=== PATIENT | male | born 1970 | race Caucasian/White ===

== ENCOUNTER 2024-10-12 10:34 | Outpatient (REF) | payer OTHER, SELFPAY ==
--- NOTE | ~2024-10-12 | XR_ITS ---
CLINICAL HISTORY: M50.90 - Cervical disc disorder, unspecified, unspecified cervical region 4 views cervical spine Comparison: None Findings: There is 2.5 mm anterior listhesis C4 on C5 which does not change on neutral, flexion or extension views. There are multilevel degenerative changes. The there are multilevel osteophytes, mild disc space narrowing, facet spondylosis and uncinate hypertrophy. No acute fractures or dislocation. Prevertebral soft tissues within normal limits. IMPRESSION: Multilevel spondylosis as above This document has been electronically signed by: Chucho Zhou MD on 10/13/2024 07:26:44
--- OUTSIDE RECORDS SUMMARY | 2024-10-12 13:56 | XMS_ITS | Data Portability ---
Author Organization [facility], [employer] Address [address] [place] [address] Care Team Providers Care Regional Guide Name Role Phone ELLE ORNELAS Primary Care Provider Assessment Encounter Date Assessment Date Assessment LastModified by Organization Details LastModified Time 04/30/2023 04/30/2023 pt is feeling much better has been out of work for 4 days would like to return to work no temp occasional cough appetite improved hydrating neg covid test [email or web address] Not available 05/01/2023 13:45:40 07/06/2023 07/06/2023 35 minutes spent on date of service on chart review, direct time spent with patient, and documentation of clinical encounter. During this encounter, 2 of the 3 elements of MDM addressed: (1)Number and Complexity of problems: 1 undiagnosed new problem with uncertain prognosis (2)Amount/Comple xity of data (need 1 out of 3 categories): (3)Moderate Risk of morbidity from additional diagnostic testing or treatment (one needed): Prescription Drug management. Not available 07/06/2023 10:53:20 02/16/2024 02/16/2024 30 minutes spent on date of service on chart review, direct time spent with patient, and documentation of clinical encounter. [email or web address] Not available 02/16/2024 20:36:35 10/04/2024 10/04/2024 During this encounter, 2 of the 3 elements of MDM addressed: (1)Number and Complexity of problems: 1 or more chronic illness with exacerbation, progression, or side effects of treatment (2)Amount/Comple xity of data (need 1 out of 3 categories): (3)Moderate Risk of morbidity from additional diagnostic testing or treatment (one needed): Prescription Drug management. [email or web address] Not available 10/04/2024 15:49:46 Plan of Treatment Reminders Order Date Submit Date Provider Last Modified By Organization Details Last Modified Time Details Appointments None recorded. Lab CBC w/ auto diff 2023 024 [place] [facility] (Centralized Electronic Ordering - All Locations), Patient Can Go To The Location Of Their Choice, [address] 4 10:50:56 CMP, serum or plasma 2023 024 [place] [facility] (Centralized Electronic Ordering - All Locations), Patient Can Go To The Location Of Their Choice, [address] 4 10:50:56 Referral spine center referral 2024 025 [place] [address] [facility], [address], [place] [address], [place], [address], 5 10:29:47 spine center referral 2023 024 [email or web address] 4 [facility], [address] [place], [address], 4 10:04:12 traffic operator referral 2023 024 [email or web address] 4 Elvia Steele DPM, [address] , [place], [address], 4 09:33:18 Procedures None recorded. Surgeries None recorded. Imaging XR, cervical spine 2023 024 [facility] (Outpt Imaging), [address] [place], [address], 4 14:59:25 XR, foot, 3 or more view 2023 024 [facility] (Outpt Imaging), [address] [place], [address], 4 09:07:24 XR, chest, 2 view 2022 023 [email or web address] [facility] (Outpt Imaging), [address] [place], [address], 3 14:51:40 Medication Orders hydrocodone 5 mg-acetamin ophen 325 mg tablet [email or web address], [address], 5 15:27:37 Bactrim DS 800 mg-160 mg tablet [address], [address], 5 15:07:22 terbinafine HCl 250 mg tablet [address], [address], 4 10:49:08 tramadol 50 mg tablet 2022 [email or web address], [address], 3 10:06:04 Patient TargetsNo targets recorded. Patient Instructions Encounter Date Encounter Id Patient Instructions Last Modified By Organization Details Last Modified Time 04/07/2023 [id number] Please have X-ra y of ribs done. Results will be reviewed by a provider, then be relayed to you. Take Tramadol 50mg every 6 hours as needed for pain/discomfort, along with Tylenol 1,000mg three times a day, and ibuprofen 600-800mg every 6-8 hours as needed for pain/discomfort. Brace affected side with a rolled up towel, or a pillow, when taking deep breaths, coughing, or sneezing. Drink plenty of non-caffeinated fluids. Call this office if you develop a fever of 101F or above, and/or increased productive cough. 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 Referring Physician: Ceci Valencia, Family Medicine, Encounter Date: 07/06/2023 Spine Center Referral for Ne ck pain Referring Physician: Fidelina Preciado, Internal Medicine, Encounter Date: 02/16/2024 Spine Center Referral for Ne ck pain Referring Physician: Elle Ornelas, Internal Medicine, Encounter Date: 10/04/2024 Results Created Date Observation Date Name Description Value Unit Range Abnormal Flag Note LastModifiedBy Organization Detail LastModifiedTime 04/07/2004/07/2023 XR, chest , 2 view Chest 2 Views Fronta l and Lat Reason : pleuro dynia COMPAR SHAILA: 023 FINDIN GS: LINES AND TUBES: None. LUNGS AND PLEURA : Clear lungs. Normal pulmon anai vascul arity. No pleura l effusi on. No pneumo thorax . HEART, MEDIAS TINUM AND SHAHLA: Heart is normal in size. Normal medias tinal and hilar contou r. BONES AND SOFT TISSUE S: No acute abnorm ality. IMPRES DARIN: No acute abnorm ality. WSN: [id number] Orderi ng Physic grace: Fidelina Preciado Dictat ed By: Fahad Linton MD Dictat ed Date/T alissa: 2:13 pm Review ed By: Fahad Linton MD Signed By: Fahad Linton MD Signed Date/T alissa: 2:13 pm Transc ribed By: GILLES Transc ribed Date/T alissa: 2:11 pm Patien t Class: 5 [facility] (Outpt Imaging) [address] [place], [address], 04/07/2023 15:26:10 07/06/19 24 07/06/2023 XR, foot, 3 or more view Foot Min 3 Views Left, 3 views Reason : Planta r foot pain after crush injury 023 COMPAR SHAILA: None. FINDIN GS: No fractu res or bone lesion s. Small Achill es heel spur but no other arthri tic change s. Normal soft tissue s. IMPRES DARIN: No explan ation for foot pain. WSN: [id number] Orderi ng Physic grace: Devonte Valencia Dictat ed By: Hortencia kinsey MD, [place] marques Dictat ed Date/T alissa: 9:04 am Review ed By: Hortencia kinsey MD, [place] marques Signed By: Hortencia kinsey MD, [place] marques Signed Date/T alissa: 9:04 am Transc ribed By: GILLES Transc ribed Date/T alissa: 9:03 am Patien t Class: 5 [email or web address] [facility] (Outpt Imaging) [address] [place], [address], 07/07/2023 10:31:38 07/06/19 24 07/06/2023 XR, foot, 3 or more view No observ ation record ed. [email or web address] [facility] (Outpt Imaging) [address] [place], [address], 07/06/2023 20:27:19 02/16/20 24 02/16/2024 XR, cervi zulema spine Cervic al Spine 3 Views or Less Reason : chroni c neck pain radiat es to right should er COMPAR SHAILA: None. FINDIN GS: No bone lesion s or fractu res. Normal odonto id and C1/2 relati onship . Modera te disc space narrow ing and mild margin al spurri ng at C5-6 and C6-7. There is also disc space narrow ing at C7-T1. Modera te facet arthro yoana. Normal alignm ent. Normal prever tebral soft tissue s and clear lung apices . IMPRES DARIN: Degene rative disc and facet arthro yoana. WSN: [id number] Orderi ng Physic grace: Fidelina Preciado Dictat ed By: Hortencia kinsey MD, [place] marques Dictat ed Date/T alissa: 2:51 pm Review ed By: Hortencia kinsey MD, [place] marques Signed By: Hortencia kinsey MD, [place] marques Signed Date/T alissa: 2:51 pm Transc ribed By: CSB Transc ribed Date/T alissa: 2:50 pm Patien t Class: 5 [facility] (Outpt Imaging) [address], [place], [address], 03/02/2024 04:02:42 02/22/2002/22/2024 CT chest ldct lung progr am CHEST CT LOW DOSE SCREEN ING INDICA TION: Screen ing for lung cancer . Histor y of smokin g. Visit type: Annual Screen ing COMPAR SHAILA: 023 TECHNI QUE: Low-do se helica l CT of the chest withou t IV contra st (Adult Lung Cancer Screen ing) protoc ol was perfor med. Sagitt al and carroll l reform ats were obtain ed. Weight -based protoc ol using automa tic tube modula tion was used to optimi ze exposu re parame ters. RADIAT ION DOSE PARAME TERS: CTDIvo l Body: 1.65 mGy, DLP Body: 65 mGy*cm . FINDIN GS: LUNG NODULE S: RIGHT LUNG: There are a few small stable nodule s measur ing no more than 4 mm. There is no new right lung nodule . LEFT LUNG: There are a few small stable nodule s measur ing no more than 4 mm. There is a new findin g of irregu lar abnorm ality periph erally in the left lower lobe extend ing over a 2 cm area. It has a findin g that resemb les tree-i n-bud patter n of diseas e althou gh the indivi dual compon ents are larger than usuall y seen with this proces s. Infect ious/i nflamm atory proces s is favore d. OTHER FINDIN GS: Trache a and Mainst em Bronch i: Normal . Lungs and Pleura : The lungs are clear. No pneumo thorax or pleura l effusi on. Medias tinum and Lymph nodes: No large lymph nodes. Normal cardia c size. No perica rdial effusi on. Carroll ry artery calcif icatio n: None. Chest wall and Soft tissue s: Normal . Bones: No focal abnorm ality. Visual ized Upper Abdome n: No worris ome incide ntal abnorm ality. IMPRES DARIN: PULMON ANAI NODULE S: 1. There are a few stable solid nodule s measur ing no more than 4 mm. 2. There is no new indivi dual solid or ground glass nodule . 3. There is new 2 cm abnorm ality in the left lower lobe with featur es favori ng infect ious/i nflamm atory etiolo gy but mildly atypic al for this. A short- term follow -up is recomm ended. LUNG-R ADS CATEGO RY 0. Follow -up low dose CT 1-3 months . OTHER FINDIN GS: 1. No worris ome incide ntal abnorm ality. Catego rizati on based on Lung-R ADS 2021 criter ia. https: //www. [email or web address].or g/-/me filiberto/AC R/File s/RADS /Lung- RADS/L tess-RA 2.pdf WSN: [id number] Orderi ng Physic grace: Elle Ornelas Dictat ed By: Trevon Chacko MD Dictat ed Date/T alissa: 7:10 pm Review ed By: Trevon Chacko MD Signed By: Trevon Chacko MD Signed Date/T alissa: 7:10 pm Transc ribed By: GILLES Transc ribed Date/T alissa: 4:34 pm Patien t Class: 5 [facility] (Outpt Imaging) [address] [place] [address], [address], 03/02/2024 13:15:55 02/22/2002/22/2024 LDCT, chest , for lung cance r scree damien No observ ation record ed. [address], [address], 02/22/2024 19:17:26 02/29/2002/22/2024 LDCT, chest , for lung cance r scree damien No observ ation record ed. [address] - Health Information Management [address] [facility], [place], [address], 03/01/2024 07:51:50 03/09/20 24 02/29/2024 LDCT, chest , for lung gabriel quezada No observ ation record ed. [email or web address] [facility] Lung Cancer Screening Program [address] [place] [address] [address], [place], [address], 03/09/2024 11:44:26 05/25/20 24 05/25/2024 CT chest ldct progr am follo w up CT Chest LDCT Progra m Follow Up Reason : Other: ; 3 MONTHS F U LDCT LUNG CANCER SCREEN ING PROGRA M, FORMER SMOKER , QUIT AT AGE, 42, 40 PACK YEAR HX; Clinic al Questi on(s): Other: ; Specia l Instru ctions : BOOK AT [address] [place] [address], [facility] BOOK AFTER 05 24 2024 Visit type: Follow -up TECHNI QUE: Low-do se helica l CT of the chest withou t IV contra st (Adult Lung Cancer Screen ing) protoc ol was perfor med. Carroll l reform ats were obtain ed. Weight -based protoc ol using automa tic tube modula tion was used to optimi ze exposu re parame ters. CTDIvo l Body: 1.70 mGy, DLP Body: 73 mGy*cm . COMPAR SHAILA: Low-do se chest CT 024. FINDIN GS: LUNG NODULE S (measu red on thin axial series 206): RIGHT lung: * 4 mm nodule in the medial right upper lobe (48/20 6) is unchan ged. * 3 nodule in the subple ural right upper lobe (110/0 6) unchan ged. * 3 mm subple ural nodule in the right upper lobe (110/2 06) unchan ged. * Small nodule s along the right minor fissur e unchan ged larges t measur ing 4 mm (141/2 06). * 3 mm subple ural nodule in the right lower lobe (250/2 06) unchan ged. LEFT lung: * The area of tree-i n-bud nodula rity in the periph eral left lower lobe persis ts from the prior exam, though the densit y has decrea sed. The area spans approx imatel y 1.8 x 1.4 cm (201/ 06). There is a new nodula r compon ent measur ing approx imatel y 3 mm (206/ 06), which is likely also infect ious/i nflamm atory in etiolo gy. A subple ural nodula r focus involv ing tree-i n-bud opacit y inferi delmar measur ing 4 mm (211/ 06) is unchan ged. * Few small subple ural nodule s in the left lower lobe are unchan ged larges t measur ing 5 mm (243/ 06). OTHER FINDIN GS: Idea Worker view findin gs, lines and tubes: None. Trache a and airway s: Patent withou t eviden ce of trache al or endobr onchia l lesion . Lungs and pleura : Focus of tree-i n-bud nodula rity in the subple ural left lower lobe is unchan ged. No new acute consol idatio n. No effusi on or pneumo thorax . Medias tinum and shahla: No mass or hemato ma. No medias tinal or hilar lympha denopa thy. No esopha geal abnorm ality. Partia lly imaged thyroi d is unrema rkable . Heart: Heart is normal in size. No perica rdial effusi on. No carroll ry arteri al calcif icatio ns. Aorta: No aortic aneury sm. Pulmon anai arteri es: Normal calibe r. Chest wall soft tissue s: No acute abnorm ality. Diaphr agm: Intact . Upper abdome n: No signif icant abnorm ality. Bones: No acute abnorm ality. IMPRES DARIN: 1. Decrea sed densit y of the tree in bud opacit y in the left lower, most compat ible with an infect ious/i nflamm atory proces s. Additi onal pulmon anai nodule s are unchan ged LungRa d Catego ry: 2 Benign Appear ance or Behavi or. Nodule s with a very low likeli goodrich of becomi ng a clinic ally active cancer due to size or lack of growth . Contin ue annual screen ing with LDCT in 12 months . 2. No signif icant additi onal findin gs requir ing furthe r evalua tion. Lung-R AD Catego ry Modifi er: None. Catego rizati on based on Lung-R ADS 2021 criter ia. https: //www. [email or web address].or g/-/me filiberto/AC R/File s/RADS /Lung- RADS/L tess-RA DS-202 2.pdf WSN: [id number] Orderi ng Physic grace: Elle Ornelas Dictat ed By: Leonard Holliday MD Dictat ed Date/T alissa: 11:30 a Review ed By: Leonard Holliday MD Signed By: Leonard Holliday MD Signed Date/T alissa: 11:30 am Transc ribed By: GILLES Transc ribed Date/T alissa: 11:02 am Patien t Class: 5 [place] [facility] (Outpt Imaging) [address] [place], [address], 05/25/2024 13:21:24 05/25/20 24 05/25/2024 LDCT, chest , for lung cance r scree damien No observ ation record ed. [address] [facility], [place], [address], 05/25/2024 11:39:41 05/30/20 24 05/25/2024 LDCT, chest , for lung cance r scree damien No observ ation record ed. [address] Lung Cancer Screening Program [facility] [place] [address], [place], [address], 05/30/2024 11:35:33 06/02/20 24 06/02/2024 CT, cervi zulema spine , w/o contr ast No observ ation record ed. [facility] Main Office [address] [facility]. [facility] [address], [place], [address], 06/05/2024 12:08:11 10/06/19 25 05/25/2024 XR, hip + pelvi s, unila teral , 2 or 3 view No observ ation record ed. [email or web address] Not Available 2024 10:25:35 Result Notes None recorded. Problems Name Problem SNOMED Code Status Onset Date Resolution Date Notes Provider Name and Address Organization Details Recorded Time Ex-smoker 9421856 Active 2022 Elle Ornelas NP [address] [facility] [address], [place], [address], [place] [facility] 3 11:07:08 Syncope 106624751 Active 2022 Elle Ornelas NP [address] [facility] [address], [place], [address], [place] [facility] 3 11:07:13 Pain in right hip joint 587035811128743 Active 2022 Elle Ornelas NP [address] [address], [place], [address], [place] [facility] 3 11:07:20 Swelling of finger of left hand 239241741631138 06 Active 2023 Fidelina Preciado NP [address] [address], [place], [address], [place] [facility] 4 11:09:56 Neck pain 53349783 Active 2023 Fidelina Preciado NP [address] [address], [place], [address], [place] [facility] 4 11:11:09 Problem Notes None recorded. Procedures Surgical History Date Name Laterality Status Provider Name and Address Organization Details Recorded Time Shoulder joint surgery completed Elle Ornelas NP [address] [address], [place], [address], [place] [facility] 11/10/2022 09:43:27 Imaging Results Imaging Date Name Status LastModified by [facility]iz [facility] Details LastModified Time 04/07/2023 XR, chest, 2 view [facility] [address] [facility], [place], [address], 04/07/2023 15:26:10 07/06/2023 XR, foot, 3 or more view completed [email or web address] (Outpt Imaging) [address] [place], [address], 07/07/2023 10:31:38 07/06/2023 XR, foot, 3 or more view completed [facility] (Outpt Imaging) [address] [place], [address], 07/06/2023 20:27:19 02/16/2024 XR, cervical spine active ALVARO [facility] (Outpt Imaging) [address] [place], [address], 03/02/2024 04:02:42 02/22/2024 CT chest ldct lung program completed [facility] (Outpt Imaging) [address] [place], [address], 03/02/2024 13:15:55 02/22/2024 LDCT, chest, for lung cancer screening completed [address] [place], [address], 02/22/2024 19:17:26 02/22/2024 LDCT, chest, for lung cancer screening completed [address] - Health Information Management [address] [place] [address], [address], 03/01/2024 07:51:50 02/29/2024 LDCT, chest, for lung cancer screening completed [address] Lung Cancer Screening Program [facility] [address], [place], [address], 03/09/2024 11:44:26 05/25/2024 CT chest ldct program follow up completed [facility] (Outpt Imaging) [address] [place], [address], 05/25/2024 13:21:24 05/25/2024 LDCT, chest, for lung cancer screening completed [address] [place], [address], 05/25/2024 11:39:41 05/25/2024 LDCT, chest, for lung cancer screening completed [email or web address] [facility] Lung Cancer Screening Program [address] [place] [address], [place], [address], 05/30/2024 11:35:33 06/02/2024 CT, cervical spine, w/o contrast completed [facility] Office [address] [facility] [address], [place], [address], 06/05/2024 12:08:11 05/25/2024 XR, hip + pelvis, unilateral, 2 or 3 view completed [email or web address] Information not available 10/05/2024 10:25:35 Procedure Notes None recorded. Medical Equipment None Reported. Allergies No known drug allergies Medications Name Sig Start Date Stop Date Status Note LastModified by Organization Details LastModified Time acetaminoph en 325 mg tablet Take 2 tablets every 6 hours by oral route. 10/04 completed Not Available Not Available Not Available hydrocodone 5 mg-acetamin ophen 325 mg tablet active Not Available Not Available No t Available sulfamethox azole 800 mg-trimetho prim 160 mg tablet Take 1 tablet every 12 hours by oral route for 5 days. 10/04 completed Not Available Not Available Not Available tramadol 50 mg tablet Take 1 tablet every 6 hours by oral route as needed for 7 days. 04/30 completed Not Available Not Available Not Available ciclopirox 8 % topical solution 02/15 completed Not Available Not Available Not Available terbinafine HCl 250 mg tablet Take 1 tablet every day by oral route for 84 days. 02/15 completed Not Available Not Available Not Available ibuprofen 200 mg tablet Take 1 tablet every 6 hours by oral route. 10/04 completed Not Available Not Available Not Available albuterol sulfate HFA 90 mcg/actuati on aerosol inhaler Inhale 2 puffs every 4-6 hours by inhalatio n route as needed. active Not Available Not Available No t Available oxycodone 5 mg tablet Take 1 tablet every 6 hours by oral route as needed. 04/30 completed Not Available Not Available Not Available Prevacid 24Hr 15 mg capsule,del ayed release Take 1 capsule every day by oral route. 10/04 completed Not Available Not Available Not Available Vitals Date Recorded Body height Heart rate Respiratory rate Oxygen saturation Oxygen saturation in Arterial blood by Pulse oximetry Systolic blood pressure Diastolic blood pressure Provider Name and Address Organization Details Last Updated DateTime 3 187.96 cm 83 /min 22 /min 93 % 93 % 110 mm[Hg] 70 mm[Hg] Guadalupe Min [place] [facility] 13:08:05 Date Recorded Body height Heart rate Body mass index (BMI) Body weight Oxygen saturation Oxygen saturation in Arterial blood by Pulse oximetry Systolic blood pressure Diastolic blood pressure Provider Name and Address Organization Details Last Updated DateTime 3 187.96 cm 82 /min 26.7 kg/m2 50771.2 1 g 97 % 97 % 130 mm[Hg] 84 mm[Hg] Maci Room, FACILITY MAINTENANCE TECHNICIAN [address], [place], [address], [place] [facility] 3 10:04:49 Date Recorded Body height Body mass index (BMI) Body weight Oxygen saturation Oxygen saturation in Arterial blood by Pulse oximetry Heart rate Systolic blood pressure Diastolic blood pressure Provider Name and Address Organization Details Last Updated DateTime 4 187.96 cm 29.1 kg/m2 496182. 47 g 98 % 98 % 73 /min 130 mm[Hg] 78 mm[Hg] Yuridia davis [place] [facility] 4 08:04:48 Date Recorded Body weight Body mass index (BMI) Body height Oxygen saturation Oxygen saturation in Arterial blood by Pulse oximetry Heart rate Systolic blood pressure Diastolic blood pressure Provider Name and Address Organization Details Last Updated DateTime 4 22719.1 4 g 28 kg/m2 187.96 cm 98 % 98 % 68 /min 136 mm[Hg] 82 mm[Hg] Yuridia davis [place] [facility] 4 10:46:46 Date Recorded Body height Provider Name an d Address Organization Details Last Updated DateTime 10/04/2024 187.96 cm Yuridia Dolan [place] [facility] 10/04/2024 14:59:16 Date Recorded Body mass index (BMI) Body weight Heart rate Oxygen saturation Oxygen saturation in Arterial blood by Pulse oximetry Systolic blood pressure Diastolic blood pressure Provider Name and Address Organization Details Last Updated DateTime 5 29.3 kg/m2 110151. 76 g 74 /min 96 % 96 % 132 mm[Hg] 88 mm[Hg] Ana Maria alva [place] [facility] 5 15:05:57 Social History Question Answer Notes LastModified by Organizat ion Details LastModified Time Tobacco Smoking Status Former Smoker Elle Ornelas NP [address] [facility], [address], [place], [address], [facility] 11/10/2022 09:42:54 What Is Your Level Of Alcohol Consumption? Occasional 2 Beers Per Night [email or web address] Information not available 11/10/2022 Are You Currently Employed? Yes [email or web address] Information not available 11/10/2022 Which Illicit Or Recreational Drugs Have You Used? 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 6-10yearssince lastcigarette [email or web address] Information not available 11/10/2022 How Many Children Do You Have? 0 Information not available 11/10/2022 What Is Your Relationship Status? Single [email or web address] Information not available 11/10/2022 Do You Use Any Illicit Or Recreational Drugs? Yes Information not available 11/10/2022 Sex: Unknown Functional Status Question Answer Note LastModified by Organizat ion Details LastModified Time What is your exercise level? 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 Family History Relationship Description Onset Age of this Age Resolved Age Notes LastModified by Organization Details LastModified Time Brother Malignant tumor of colon [email or web address] Not available 2022 09:40:13 Paternal Grandfather Malignant tumor of lung [email or web address] Not available 2022 09:40:29 Medical History No medical history recorded. Past Encounters Encounter ID Performer Location Encounter Start Date Encounter Closed Date Diagnosis/Indication Diagnosis SNOMED-CT Code Diagnosis ICD10 Code Diagnosis Note [id number] Elle Ornelas NP Main Office [address] [facility],[address] [place] [address] 11/10/2022 09:18:16 11/10/2022 10:00:56 Ex-smoker [id number] Z87.891 Will enroll in LDCT cancer screening program. Pain in ri ght hip joint [id number] M25.551 Will get XR and possible cortisone injection in the future. Syncope [id number] R55 Will get CT head and 14 day holter monitor and follow up after testing. [id number] Fidelina Preciado NP Main Office [address] [place] [address] [address] [place] [address] 04/07/2023 12:54:41 04/07/2023 13:50:43 Rib pain [id number] R07.81 Orders per Fidelina Preciado.Plea se have X-ray of ribs done. Results will be reviewed by a provider, then be relayed to you. Take Tramadol 50mg every 6 hours as needed for pain/disco mfort, along with Tylenol 1,000mg three times a day, and ibuprofen 600-800mg every 6-8 hours as needed for pain/disco mfort. Brace affected side with a rolled up towel, or a pillow, when taking deep breaths, coughing, or sneezing. Drink plenty of non-caffei nated fluids. Call this office if you develop a fever of 101F or above, and/or increased productive cough. [id number] Nabil Mtz DO Main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
== END 2024-10-12 10:35 | disposition home or self-care (01) ==
LOC: HO.HOSX 10:34
PROVIDERS: PCP Nurse Practitioner Gerontology; Referring Provider Nurse Practitioner Gerontology; Visit Provider Physician Assistant
DX: M50.90 Cervical disc disorder, unspecified, unspecified cervical region (principal)
CPT/HCPCS: 72050

== ENCOUNTER 2024-10-12 10:34 | Outpatient (AMB) | payer OTHER, SELFPAY ==
--- NOTE | 2024-10-12 10:37 | HO.SPINEOV ---
Vital Signs 10/12/24 10:47 Height 6 ft 2 in Weight 230 lb BMI 29.5 Intake Visit Reasons: Neck pain Intake Note: Mr. Leyva is here today c/o neck pain. 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 This is a very nice 54-year-old gentleman who presents for evaluation today neck pain and right arm pain that started about a year ago. He just woke up 1 day with what he thought was a stiff neck. Typically these kind of things would just come and go, but this stayed, and in fact only continued to get worse. He describes it as train tracks of pain and discomfort radiating down along the paraspinal posterior cervical region in addition to pain radiating down his arm into his hand with numbness of his 3rd 4th and 5th digits. He does get a feeling of weakness in his hands. When he rides his motorcycle his hands will go numb. 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 He went through an extensive dedicated conservative treatment program including physical therapy, chiropractic, massage therapy, Tylenol, diclofenac, tramadol, ibuprofen. He ultimately underwent a cortisone injection which did not give him any significant relief. He had a CT scan of his cervical spine done at [facility] showing spondylolisthesis at C4-5, degenerative disc disease at C5-6, C6-7 and C7-T1. He came to see us today for evaluation. PMH: History of shoulder surgery twice on the right side, he probably some degree of rotator cuff issue on the left currently as well. He has a piece of metal from a hammer in his right medial thigh which limits him from being able to get MRIs currently. He did have an MRI in the past had an outside facility, and was told if he can find a copy of those reports verifying that he went through the MRI without any issues, he should be able to get another 1. Social hx: Quit smoking cigarettes a long time ago, he does drink a few beers every day and has marijuana daily Medications: Hydrocodone, ibuprofen Allergies: None Physical exam: Awake alert oriented no acute distress, he had limited range of motion in both right and left trajectories, bilateral hand weakness which I would rate as 4-5. He has diminished reflexes on the right at the biceps and triceps. Normal on the left. No Snow's sign. Does have positive Phalen's sign in both hands. Imaging review: Cervical CT scan done at [facility] shows slight spondylolisthesis at C4-5 with significant facet arthropathy more on the right, degenerative disc disease at C5-6 and C6-7. At C7-T1 there appears to be a right-sided disc collapse and what appears to be an osteophyte in the right C7 foramen. Impression: 54-year-old male presents for evaluation of posterior cervical neck pain radiating down into his arm in his hand with numbness of his 3rd 4th and 5th digits. He has been through extensive conservative treatment. Unfortunately right now limited as to what I can offer him from a surgical evaluation because of the inability to get an MRI. He is going to look into obtaining the records from his previous MRIs to verify that it is okay for him to undergo an MRI. I would be happy to order that as long as he has the documentation. I am going get a set of flexion-extension x-rays as well to evaluate the spondylolisthesis a little more clearly. He likely has a component of carpal tunnel syndrome as well. While that has nothing to do with his neck, it probably limits his hand strength somewhat and gives him numbness when he is riding his motorcycles. I told him if he wants to work that up at some point I could get an EMG study for him. Thank you for allowing us to care for your patient. The total time spent with this visit with this patient was 45 minutes reviewing history, physical exam, cervical CT imaging review, and implementation of treatment plan or further diagnostic testing Miguel Mac MD,PhD [facility] Orders: Orders XR cervical spine 4V Today M50.90 - Cervical disc disorder, unspecified, unspecified cervical region Coding Level of Care Code New Pt Level 4 (87021) Diagnoses Cervical disc disorder M50.90
[2024-10-12 10:47] VITALS: BMI 29.5
== END 2024-10-12 11:40 | disposition home or self-care (01) ==
LOC: HO.HNS 10:35
PROVIDERS: PCP Nurse Practitioner Gerontology; Referring Provider Nurse Practitioner Gerontology; Visit Provider Physician Assistant
DX: M50.90 Cervical disc disorder, unspecified, unspecified cervical region (principal)
CPT/HCPCS: 99204

== ENCOUNTER → 2024-10-12 11:30 | Outpatient (BNV) | payer OTHER, SELFPAY | PROVIDERS: PCP Nurse Practitioner Gerontology; Referring Provider Nurse Practitioner Gerontology; Visit Provider Radiology Diagnostic Radiology | DX: M50.90 Cervical disc disorder, unspecified, unspecified cervical region (principal); M47.812 Spondylosis without myelopathy or radiculopathy, cervical region | CPT/HCPCS: 72050 ==

== ENCOUNTER → 2024-12-07 09:37 | Outpatient (BNV) | payer OTHER, SELFPAY | PROVIDERS: Visit Provider Radiology Diagnostic Radiology | DX: S14.0XXA Concussion and edema of cervical spinal cord, initial encounter (principal); M47.812 Spondylosis without myelopathy or radiculopathy, cervical region; M50.33 Other cervical disc degeneration, cervicothoracic region | CPT/HCPCS: 72141 ==

== ENCOUNTER 2024-12-07 09:38 | Outpatient (REF) | payer OTHER, SELFPAY ==
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
== END 2024-12-07 09:39 | disposition home or self-care (01) ==
LOC: HO.MRI 09:38
PROVIDERS: Visit Provider Physician Assistant
DX: M50.90 Cervical disc disorder, unspecified, unspecified cervical region (principal)
CPT/HCPCS: 72141

== ENCOUNTER 2024-12-14 14:31 | Outpatient (AMB) | payer OTHER, SELFPAY ==
--- NOTE | 2024-12-14 14:53 | HO.SPINEOV ---
Intake Visit Reasons: MRI f/up Intake Note: Mr. Leyva is here today to F/u on the results to his MRI. Inspector Subassembly Required: No Allergies No Known Allergies Allergy (Verified 12/14/24 14:54) Assessment & Plan Assessment & Plan (1) Left shoulder pain: Code(s): M25.512 - Pain in left shoulder Category: Medical Plan Mr Leyva is here in follow-up. Please refer to my previous note for the specifics of his issues. The main thing he has been dealing with now is neck pain and primarily right-sided arm pain going down to his hand with numbness of his 3rd 4th and 5th digits. I reviewed his MRI done at [place]. It shows he has multilevel disc degeneration with foraminal narrowing at C5-6, C6-7 and C7-T1. Based on the dermatomal distribution of his symptoms I suspect what we are dealing with a C6-7 and C7-T1. He has been through numerous amounts of conservative treatment for this and I think Dr. Mac will recommend anterior cervical fusion. I am going to review all the imaging with Dr. Mac and get back to the patient with a final plan. He has also been dealing with a significant left shoulder pain. Certainly this could be partly due to the cervical radiculopathy but on my exam he has limited range of motion and pain with internal and external rotation especially in a flexed position with his deltoid. He has a very active physical job and has had previous rotator cuff surgery on the right side. I suspect he is dealing with something similar on the left. I am going to get an x-ray and refer him to see . Total amount of time spent in this visit was 20 minutes in discussion of symptoms, cervical MRI imaging results and subsequent plan of care Miguel Mac MD,PhD [facility] Orders: Orders XR shoulder LT min 2V Today M25.512 - Pain in left shoulder Referrals Orthopedics Referral M25.512 - Pain in left shoulder Coding Level of Care Code Est Pt Level 3 (26532) Diagnoses Left shoulder pain M25.512
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
== END 2024-12-14 15:29 | disposition home or self-care (01) ==
LOC: HO.HNS 14:32
PROVIDERS: Visit Provider Physician Assistant
DX: M25.512 Pain in left shoulder (principal)
CPT/HCPCS: 99213

== ENCOUNTER 2024-12-14 14:31 | Outpatient (REF) | payer OTHER, SELFPAY ==
--- NOTE | ~2024-12-14 | XR_ITS ---
CLINICAL HISTORY: M25.512 - Pain in left shoulder --- Additional Notes or Special Instructions: left shoulder pain 4 view left shoulder Comparison: None Findings: No acute fracture. Old left posterior rib fractures. Moderate acromioclavicular and minimal glenohumeral osteoarthritis. Several foci of rotator cuff calcific tendinopathy, with the largest measuring up to 14 x 4 mm on the axillary view. Small metallic foreign body projecting anterior to the distal clavicle. IMPRESSION: 1. Left rotator cuff calcific tendinopathy. 2. Moderate acromioclavicular and minimal glenohumeral osteoarthritis. 3. Small metallic foreign body projecting anterior to the distal clavicle. This document has been electronically signed by: Juliano Peacock DO on 12/15/2024 11:28:32
== END 2024-12-14 14:32 | disposition home or self-care (01) ==
LOC: HO.HOSX 14:31
PROVIDERS: Visit Provider Physician Assistant
DX: M25.512 Pain in left shoulder (principal); M77.8 Other enthesopathies, not elsewhere classified; M19.012 Primary osteoarthritis, left shoulder; M79.5 Residual foreign body in soft tissue
CPT/HCPCS: 73030

== ENCOUNTER → 2024-12-14 15:19 | Outpatient (BNV) | payer OTHER, SELFPAY | PROVIDERS: Visit Provider Radiology Diagnostic Radiology | DX: M19.012 Primary osteoarthritis, left shoulder (principal) | CPT/HCPCS: 73030 ==